=== PATIENT | female | born 1940 ===

== ENCOUNTER → 2023-02-26 10:42 | Outpatient (BNVA) | payer MEDICARE, SELFPAY | PROVIDERS: Referring Provider Family Medicine; Visit Provider Anesthesiology Pain Medicine | DX: M47.816 Spondylosis without myelopathy or radiculopathy, lumbar region (principal); M51.36 Other intervertebral disc degeneration, lumbar region | CPT/HCPCS: 99205 ==

== ENCOUNTER 2023-02-28 16:19 | Outpatient (CLI) | payer MEDICARE, SELFPAY ==
--- NOTE | 2023-02-28 16:40 | XR_ITS ---
WS: [id number] Lumbar spine, 5 views including both obliques, 02/28/2023 Clinical Data: M47.816 - Spondylosis without myelopathy or radiculopathy... Comparison: None. Findings: There is a dextroscoliosis of the lumbar spine. There is loss of normal vertebral body height of the T12-L4 vertebral bodies which are probably wedged compression fractures of indeterminate age. All the disc spaces show degeneration and narrowing. There is diffuse osteoporosis and osteoarthritis. The o blique films show no spondylolysis. The SI joints and transverse processes show no abnormalities. The re is calcification in the wall of the abdominal aorta but no aneurysm. XR/XR lumbar spine min 4V [id number] Impression: 1. Dextroscoliosis of the lumbar spine with osteoporosis and osteoarthritis of all the lumbar vertebral bodies. 2. Multiple wedge deformities of the lower thoracic and lumbar vertebral bodies of indeterminate age. 3. Multilevel disc degeneration and narrowing.
== END 2023-02-28 16:20 | disposition home or self-care (01) ==
LOC: RAD 16:27
PROVIDERS: PCP Family Medicine; Visit Provider Anesthesiology Pain Medicine
DX: M47.816 Spondylosis without myelopathy or radiculopathy, lumbar region (principal); M41.86 Other forms of scoliosis, lumbar region; M81.0 Age-related osteoporosis without current pathological fracture; M51.36 Other intervertebral disc degeneration, lumbar region; M48.061 Spinal stenosis, lumbar region without neurogenic claudication
CPT/HCPCS: 72110